=== PATIENT | female | born 1940 | race Caucasian/White ===

== ENCOUNTER 2017-07-19 05:13 | Inpatient (IN) | payer MEDICARE, OTHER ==
[2017-07-19] VITALS (11 sets, daily range): BP systolic 101–119; BP diastolic 59–73
[~2017-07-19] VITALS: Ht 160 cm; Wt 73.9 kg
[~2017-07-19 05:13] MED LIST: ADVIL200 MG ORAL; AMBIEN5 MG ORAL; CELEBREX200 MG ORAL; COLACE100 MG ORAL; FERROUS SULFAT325 M2 ORAL; LOVENOX10 MG SUBQ; MILK OF MA400 MG/51 ORAL; MIRALAX17 G2 ORAL; MULTIVITAMINS1 EAC2 ORAL; NORCO 5-325 TA1 EACH ORAL; NORCO1 E1 ORAL; OXYCODONE HCL10 MG ORAL; SIMVASTATIN40 MG ORAL; TOPROL XL25 MG ORAL; TYLENOL325 MG ORAL; TYLENOL650 MG/20. ORAL; Tylenol PM PO; VITAMIN B-12100 MCG ORAL; VITAMIN B125000 MCG PO; VITAMIN D1000 UNI1 ORAL; XANAX0.25 MG ORAL
[2017-07-19] MEDS ORDERED: ceFAZolin sod 1 GM in NS 55 ML IVP ONE (06:00)
[2017-07-19] MEDS ORDERED: celeBREX 200mg Cap **SURGERY PATIENTS ONLY PO ONE (06:00)
[2017-07-19] MEDS ORDERED: oxyCONTIN 20mg tab ORAL ONE (06:00)
[2017-07-19] MEDS ORDERED: celeBREX 200mg Cap **SURGERY PATIENTS ONLY ORAL ONE (06:20)
[2017-07-19] MEDS ORDERED: Bupivacaine 0.5% Inj 30 ml vial INJ ONE ×2 (06:27→06:29)
[2017-07-19] MEDS ORDERED: Ropivacaine 5mg/ml Vial 30ml INJ ONE (06:28)
[2017-07-19] MEDS ORDERED: cloNIDine 1000mcg/10ml inj ONE (06:28)
[2017-07-19] MEDS ORDERED: LR 1000ml 1,000 ML IVLG SCH (06:46)
[2017-07-19] MEDS ORDERED: Bacitracin 50000 Units Vial ONE (06:52)
[2017-07-19] MEDS ORDERED: NeoSporin Gu Irrig 1ml Amp IRRIG ONE (06:52)
--- NOTE | 2017-07-19 06:52 | Anethesia Preoperative Eval ---
Anesthesia Pre-op PMH/ROS General Date of Evaluation: Jul 19, 2017 Time of Evaluation: 06:54 Anesthesiologist: Raquel ASA Score: ASA 3 Mallampati Score Class I : Soft palate, uvula, fauces, pillars visible Class II: Soft palate, uvula, fauces visible Class III: Soft palate, base of uvula visible Class IV: Only hard plate visible Mallampati Classification: Class II Surgeon: Josh Diagnosis: R Knee Pain Surgical Procedure: R Knee Total Arthroplasty Anesthesia History: none Family History: no anesthesia problems Allergies: Coded Allergies: No Known Allergies (Unverified , 08/28/15) Medications: see eMAR Past Medical History Cardiovascular: Reports: other - HL Neurologic/Psychiatric: Reports: other - Seizures, Epilepsy HEENT: Reports: cataract (L), cataract (R) PSxH Narrative: Appendectomy, B Cat Ext IOL Anesthesia Pre-op Phys. Exam Physician Exam Last Vital Signs Date Time Temp Pulse Resp B/P (MAP) Pulse Ox O2 Delivery O2 Flow Rate FiO2 07/19/17 05:54 98.0 68 20 113/73 97 Room Air 98.0 Constitutional: NAD Neurologic: CN 2-12 intact Cardiovascular: RRR Respiratory: CTA Gastrointestinal: S/NT/ND Airway Exam Mallampati Score: Class II MO: limited ROM: limited Teeth: missing, intact Anesthesia Pre-op A/P Risk Assessment & Plan Assessment: ASA 3 Plan: GA, Spinal, R adductor Block, BIS Status Change Before Surgery: No Pre-Antibiotics Dru Grams Ancef IV Given Within 1 Hr of Incision: Yes Time Given: 07:21 Contreras García MD Jul 19, 2017 06:51
[2017-07-19] MEDS ORDERED: Labetalol 5mg/ml 20ml vial IV PRN (07:00)
[2017-07-19] MEDS ORDERED: DiphenhydrAMINE 50mg/ml Inj IVP PRN (07:00)
[2017-07-19] MEDS ORDERED: Midazolam 2mg/2ml Inj IVP PRN (07:00)
[2017-07-19] MEDS ORDERED: Ketorolac 30mg Inj IV PRN ×2 (07:00)
[2017-07-19] MEDS ORDERED: LORazepam Inj 2mg/ml 1ml IV PRN (07:00)
[2017-07-19] MEDS ORDERED: fentaNYL 100 mcg/2 mL IV PRN (07:00)
[2017-07-19] MEDS ORDERED: oxyCODONE HCL/Acetaminophen 5/325mg ORAL PRN (07:00)
[2017-07-19] MEDS ORDERED: Norco 5mg/325mg tab ORAL PRN (07:00)
[2017-07-19] MEDS ORDERED: Tranexamic Acid 1,000 MG in NS 55 ML IV ONE (07:00)
[2017-07-19] MEDS ORDERED: HYDROcodone/Acetamin 7.5/325 tab ORAL PRN ×2 (07:00→07:15)
[2017-07-19] MEDS ORDERED: Atropine Inj 1mg/10ml Syr IV PRN (07:00)
[2017-07-19] MEDS ORDERED: Hydromorphone 0.5mg/0.5ml inj IVP PRN (07:00)
--- NOTE | 2017-07-19 07:01 | Pre-Procedure Note/Attestation ---
Pre-Procedure Note/Attestation Complete Prior to Procedure Planned Procedure: right Procedure Narrative: rt tka Indications for Procedure Pre-Operative Diagnosis: rt knee arthritis Attestation I attest that I discussed the nature of the procedure; its benefits; risks and complications; and alternatives (and the risks and benefits of such alternatives ), prior to the procedure, with the patient (or the patient's legal desk representative). I attest that, if there was a reasonable possibility of needing a blood transfusion, the patient (or the patient's legal desk representative) was given the [facility] standardized written summary, pursuant to the [place] Blood Safety Act ([place] Health and Safety Code # 1645, as amended). I attest that I re-evaluated the patient just prior to the surgery and that there has been no change in the patient's H&P, except as documented below: NONE ADAM FITZPATRICK Jul 19, 2017 07:01
[2017-07-19] MEDS ORDERED: Milk of Magnesia 30ml Ud ORAL PRN (07:15)
[2017-07-19] MEDS ORDERED: HYDROmorphone 1mg/ml Carpuject SUBQ PRN (07:15)
--- NOTE | 2017-07-19 07:54 | Immediate Post-Op Evaluation ---
Immediate Post-Op Evalulation Immediate Post-Op Evalulation Procedure: R Kne Arthroplasty Date of Evaluation: Jul 19, 2017 Time of Evaluation: 09:55 IV Fluids: 1000 LR Blood Products: 0 Estimated Blood Loss: 25 Urinary Output: 250 Blood Pressure Systolic: 119 Blood Pressure Diastolic: 65 Pulse Rate: 98 Respiratory Rate: 16 O2 Sat by Pulse Oximetry: 99 Temperature (Fahrenheit): 97.6 Pain Score (1-10): 0 Nausea: No Vomiting: No Complications 0 Patient Status: awake, reacts, patent, none Hydration Status: adequate Dru Grams Ancef IV Given Within 1 Hr of Incision: Yes Time Given: 07:21 Contreras García MD Jul 19, 2017 07:54
[2017-07-19] MEDS ORDERED: Sterile Water For Irrig 2000ml IRRIG ONE (09:00)
[2017-07-19] MEDS ORDERED: Dexamethasone 4mg/ml vial ONE (09:00)
[2017-07-19] MEDS ORDERED: Propofol 200mg/20ml IV ONE (09:00)
[2017-07-19] MEDS ORDERED: Lidocaine 1% MPF 10mg/ml 5ml ONE (09:00)
[2017-07-19] MEDS ORDERED: Alfentanil 2ml Inj ONE (09:00)
[2017-07-19] MEDS ORDERED: Midazolam 2mg/2ml Inj ONE (09:00)
[2017-07-19] MEDS ORDERED: LR 1000ml ONE (09:00)
[2017-07-19] MEDS ORDERED: NS Irrig 1000ml ONE (09:00)
--- NOTE | 2017-07-19 09:38 | Brief Operative Note ---
Immediate Post Operative Note Operative Note Chief Complaint: rt knee pain Pre-op Diagnosis: rt knee arthritis Procedure: rt tka Post-op Diagnosis: same as pre-op Findings: consistent w/pre-op dx studies Surgeon: md brittaney [employer] Specialist: basilio lopez Anesthesiologist: md tracy Anesthesia: general, regional Specimen: yes Complications: none Condition: stable Fluids: ns Estimated Blood Loss: minimal Drains: none Implant(s) used?: Yes - MARSHAL Eilzabeth Jul 19, 2017 09:37
--- NOTE | 2017-07-19 12:32 | Diagnostic Imaging Report ---
Indications: Postoperative, status post total knee arthroplasty Technique: Two views of the right knee Comparison: None Findings: Two postoperative views of the knee demonstrate total knee arthroplasty, good anatomic alignment of the prosthesis. . There is postsurgical soft tissue air. Impression: Postoperative right knee, no unusual features.
[2017-07-19 14:06] LABS: HEMOGLOBIN 13.9 G/DL (12.0-16.0); MEAN CORPUSCULAR VOLUME 89 FL (80-99); PLATELET COUNT 242 K/UL (150-450); RED CELL DISTRIBUTION WIDTH 11.4 % (11.6-14.8)
[2017-07-19] MEDS: D5 1/2NS w/KCl 20mEq 1,000 ML IV SCH (15:58)
[2017-07-19] MEDS: ceFAZolin sod 1 GM in D5W 55 ML IV SCH ×2 (15:58→23:38)
[2017-07-19] MEDS: Docusate 100mg cap ORAL SCH ×2 (15:58→18:04)
--- NOTE | 2017-07-19 16:45 | Operative Note - Dictated ---
DATE OF OPERATION: 07/19/2017 PREOPERATIVE DIAGNOSIS: Right knee end-stage arthritis. POSTOPERATIVE DIAGNOSIS: Right knee end-stage arthritis. PROCEDURE: Right total knee arthroplasty using Samantha Persona system, size 5 femur, size E tibia, size 35 mm all-poly patella and a 10 mm thick ultra cross-linked poly. SURGEON: Baudilio Moreno M.D. OUTSIDE UPHOLSTERER: Jillian Lima PA-C. ANESTHESIOLOGIST: Contreras García M.D. ANESTHESIA: Spinal anesthesia with adductor block for postoperative pain management. ESTIMATED BLOOD LOSS: Less than 100 mL. TOURNIQUET TIME: 75 minutes. COMPLICATIONS: None. BRIEF HISTORY: The patient is a pleasant 77-year-old female, who has had ongoing right knee arthritis. She also had left knee arthritis, underwent left total knee arthroplasty. She did very well with that. After full discussion of risks and benefits of surgery and complications associated with surgery including infection, bleeding, neurovascular complication, possibility of infection requiring resection arthroplasty, possibility of continued pain, loss of motion, decreased strength, inability to walk well, and continued pain despite surgery, she opted for surgical treatment as described above. OPERATIVE PROCEDURE: The patient was brought to the operating table and was placed supine. All pressure points were well padded. Spinal anesthesia was induced and adductor block was performed. The right knee was prepped and draped in usual sterile fashion and was exsanguinated. The tourniquet was inflated to 275 mmHg. A standard anterior approach to the knee was undertaken. Medial parapatellar arthrotomy was performed. The patella was everted. The medial and lateral meniscus were removed. ACLs and PCLs were released. Intramedullary access into the femur was obtained and intramedullary guide was placed. An optional extra 2 mm distal femoral cut was performed to allow for the 5-degree extension deficit. Once this was performed, sizing of the femur was performed and this appeared to be size 5 femur. The distal femoral cut was performed with 5 degrees of valgus, and the cutting blocks for anterior and posterior cuts were placed in about 3 degrees of external rotation and size 5 block was applied and anterior, posterior, and chamfer cuts were performed without any complication. At this point, the femoral trial was applied and there was excellent fit. This was slightly lateralized and peg holes were drilled. At this point, care was given to tibia. The posterior, medial, and lateral retractors were placed in. The anterior tibial crest was marked and anatomical axis was recreated with the extramedullary guide. The slope was recreated, 4 mm was taken off the most involved side, which was the medial side. At this point, a standard cut was performed. There was excellent cut. Flexion and extension gap was checked and appeared to be perfect. At this point, the sizing of the tibia was performed and size E appeared to be the right size. At this point, the tibia was placed in the slight external rotation and the tibia was punched in without any complication. Care was given to the patella. The patella was measured. Osteophytes were removed. The thickness of the patella was 24 mm. A standard patellar cut was performed and 14 mm of patella was remaining. At this point, sizing was performed and 35 mm patella appeared to be the right size. The peg holes were drilled. At this point, all trial components were applied and the knee was reduced and a 10 mm poly trial was applied. The knee was placed through range of motion with full extension, full flexion, and excellent stability at zero, 30 degrees, 45 degrees, and 90 degrees of flexion. The patellar tracking was excellent. At this point, all trial components were removed. Knee was thoroughly irrigated using copious amount of fluid. A bone block was placed into the femoral canal access hole. At this point, cement was mixed and the femoral component, tibial component, and patella components were all cemented without any complications. All excess cement was removed. The knee was then thoroughly irrigated after the cement was hardened and trialing was performed and size 10 mm appeared to be perfect with good range of motion and from 0 to 120 degrees and excellent stability as described previously. At this point, the knee was again thoroughly irrigated and an actual 10 mm poly was locked in without any complication. The locking mechanism was checked and rechecked, appeared to be perfectly locked. Range of motion and stability were rechecked for the last time, appeared to be perfect as described previously. The wounds were thoroughly irrigated one more time with all the components in. The tourniquet was deflated, and there was minimal bleeding. At this point, the extensor mechanism was closed using #1 Vicryl suture. Subcutaneous tissue was closed using 2-0 Vicryl suture. Skin was closed using 3-0 Monocryl suture. Dermabond was applied and sterile dressing was applied. The patient was taken to the recovery room in stable condition. All lap counts and instrument counts were correct. Baudilio Moreno M.D. DR: KETAN JOB#: [id number] CC:
--- NOTE | 2017-07-19 20:02 | History & Physical ---
History and Physical History & Physicial .HISTORY AND PHYSICAL THIS IS A 77 YEAR OLD FEMLAE WIHT HISTORY O A KNEE AND HYPERLIPDIMIOA S/P TOTAL KNE ARTHROPLASTY LASTY EAR HAD ARTHROPLASTY NO CHES TPAIN NO SOB POST OP FREDERICK DUVALL DENIES ANY PALPITAION VITALS ARE STABLE HCT IS 13.9 PLATELET 242 WELL DEVELOPED WELL NOURISHED NO JVD CTA SOFT S1,S2,RRR SOFT IMPRESSION: S/P TOTAL KNEE ARTHROPLASTY MINIMLA BLOOD LOSS HYPERLIPIDMIA RESUME SIMVASTTTIN PT OT CPM DVT PROPHYALXIS PAINCONTROL FREDERICK Guthrie RATHER WELL. LAURENT LYNCH Jul 19, 2017 20:02
[2017-07-19] MEDS: Norco 5mg/325mg tab ORAL PRN (21:02)
[2017-07-19] MEDS: Atorvastatin 20mg tab ORAL SCH (21:14)
[2017-07-19] MEDS: Enoxaparin 30mg Inj SUBQ SCH (21:15)
[2017-07-20] VITALS: BP 105/58
[2017-07-20] MEDS: D5 1/2NS w/KCl 20mEq 1,000 ML IV SCH ×2 (02:28→15:53)
[2017-07-20] MEDS: Norco 5mg/325mg tab ORAL PRN ×4 (02:33→18:07)
[2017-07-20 04:43] VITALS: BP 111/58
[2017-07-20 07:37] LABS: BASOPHILS % (AUTO) 0.3 % (0.0-2.0); EOSINOPHILS % (AUTO) 0.1 % (0.0-3.0); HEMATOCRIT 36.6 % (37.0-47.0); HEMOGLOBIN 12.7 G/DL (12.0-16.0); LYMPHOCYTES % (AUTO) 11.4 % (20.0-45.0); MEAN CORPUSCULAR VOLUME 90 FL (80-99); MONOCYTES % (AUTO) 10.4 % (1.0-10.0); NEUTROPHILS % (AUTO) 77.9 % (45.0-75.0); PLATELET COUNT 217 K/UL (150-450); RED BLOOD COUNT 4.08 M/UL (4.20-5.40); WHITE BLOOD COUNT 14.2 K/UL (4.8-10.8)
[2017-07-20 08:08] VITALS: BP 117/56
--- NOTE | 2017-07-20 08:13 | Orthopedic Progress Note ---
Orthopedic - Progress Note Subjective Symptoms: improved Objective Vital Signs Laboratory Tests Test 07/19/17 13:40 07/20/17 06:35 White Blood Count 14.0 K/UL (4.8-10.8) H 14.2 K/UL (4.8-10.8) H Red Blood Count 4.60 M/UL (4.20-5.40) 4.08 M/UL (4.20-5.40) L Hemoglobin 13.9 G/DL (12.0-16.0) 12.7 G/DL (12.0-16.0) Hematocrit 41.0 % (37.0-47.0) 36.6 % (37.0-47.0) L Mean Corpuscular Volume 89 FL (80-99) 90 FL (80-99) Mean Corpuscular Hemoglobin 30.2 PG (27.0-31.0) 31.1 PG (27.0-31.0) H Mean Corpuscular Hemoglobin Concent 33.9 G/DL (32.0-36.0) 34.7 G/DL (32.0-36.0) Red Cell Distribution Width 11.4 % (11.6-14.8) L 12.0 % (11.6-14.8) Platelet Count 242 K/UL (150-450) 217 K/UL (150-450) Mean Platelet Volume 5.5 FL (6.5-10.1) L 6.4 FL (6.5-10.1) L Neutrophils (%) (Auto) % (45.0-75.0) 77.9 % (45.0-75.0) H Lymphocytes (%) (Auto) % (20.0-45.0) 11.4 % (20.0-45.0) L Monocytes (%) (Auto) % (1.0-10.0) 10.4 % (1.0-10.0) H Eosinophils (%) (Auto) % (0.0-3.0) 0.1 % (0.0-3.0) Basophils (%) (Auto) % (0.0-2.0) 0.3 % (0.0-2.0) Differential Total Cells Counted 100 Neutrophils % (Manual) 93 % (45-75) H Lymphocytes % (Manual) 3 % (20-45) L Monocytes % (Manual) 4 % (1-10) Eosinophils % (Manual) 0 % (0-3) Basophils % (Manual) 0 % (0-2) Band Neutrophils 0 % (0-8) Platelet Estimate Adequate Platelet Morphology Normal Red Blood Cell Morphology Normal Last 24 Hour Vital Signs Date Time Temp Pulse Resp B/P (MAP) Pulse Ox O2 Delivery O2 Flow Rate FiO2 07/20/17 08:08 97.9 75 20 117/56 97 Room Air 97.9 07/20/17 04:43 97.5 72 18 111/58 95 Room Air 97.5 07/20/17 00:00 98.4 100 19 105/58 98 Room Air 98.4 07/19/17 20:00 97.6 76 18 107/63 98 Room Air 97.6 07/19/17 15:45 97.5 76 20 109/61 98 97.5 07/19/17 12:23 97.7 75 20 108/60 98 97.7 07/19/17 11:00 97.8 93 16 104/59 99 Nasal Cannula 2.0 97.8 07/19/17 10:45 91 15 101/62 96 Nasal Cannula 2.0 07/19/17 10:30 88 18 107/63 98 Nasal Cannula 2.0 07/19/17 10:15 89 15 103/67 100 Simple Mask 07/19/17 10:00 91 16 110/64 100 Simple Mask 07/19/17 09:55 92 14 112/61 100 Simple Mask 07/19/17 09:44 97.6 98 17 119/65 99 Simple Mask 97.6 07/19/17 09:44 207.7 98 16 99 I&O Intake and Output 07/19/17 07/20/17 19:00 07:00 Intake Total 400 ml 1425 ml Output Total 200 ml 1100 ml Balance 200 ml 325 ml Intake Oral 0 ml 600 ml IV Total 400 ml 825 ml Output Urine Total 200 ml 1100 ml Wound: clean, dry, intact Drains: none Neuro Status: normal Vascular Status: normal Additional Comments Xray excellent Assessment Post-op Diagnosis POD 1 Procedure Performed rt tka Plan Plan: PT, discharge plan - SNF on Tuesday MARSHAL NEWMAN Jul 20, 2017 08:13
--- NOTE | 2017-07-20 08:23 | 48 Hour Post Anesthesia Eval ---
Post Anesthesia Evaluation Procedure: R Kne Arthroplasty Date of Evaluation: Jul 20, 2017 Time of Evaluation: 06:40 Blood Pressure Systolic: 111 0: 58 Pulse Rate: 72 Respiratory Rate: 18 Temperature (Fahrenheit): 97.5 O2 Sat by Pulse Oximetry: 95 Airway: patent Nausea: No Vomiting: No Pain Intensity: 0 Hydration Status: adequate Cardiopulmonary Status: at baseline Mental Status/LOC: patient returned to baseline Post-Anesthesia Complications: 0 Follow-up care needed: N/A - further care as per primary team WINSTON CARREON M.D. Jul 20, 2017 08:23
[2017-07-20] MEDS: celeBREX 200mg Cap **SURGERY PATIENTS ONLY ORAL SCH (08:39)
[2017-07-20] MEDS: Docusate 100mg cap ORAL SCH ×3 (08:39→18:00)
[2017-07-20] MEDS: Enoxaparin 30mg Inj SUBQ SCH ×2 (08:41→20:08)
[2017-07-20 12:00] VITALS: BP 106/62
--- NOTE | 2017-07-20 19:35 | General Progress Note ---
Assessment/Plan Status Narrative s/p tkr periopertive blood loss increase pain plan oxycontin 10 bid norco prn adn willfollow monitor cbc dc to [facility] Subjective Date patient seen: Jul 20, 2017 Time patient seen: 19:33 Constitutional: Reports: no symptoms HEENT: Reports: no symptoms Allergies: Coded Allergies: No Known Allergies (Unverified , 08/28/15) Subjective has a lot o fpain \no fevver no chills Objective Last 24 Hour Vital Signs Date Time Temp Pulse Resp B/P (MAP) Pulse Ox O2 Delivery O2 Flow Rate FiO2 07/20/17 18:07 98.2 07/20/17 12:00 98.2 99 20 106/62 98 Room Air 98.2 07/20/17 08:23 207.5 72 18 95 07/20/17 08:08 97.9 75 20 117/56 97 Room Air 97.9 07/20/17 04:43 97.5 72 18 111/58 95 Room Air 97.5 07/20/17 00:00 98.4 100 19 105/58 98 Room Air 98.4 07/19/17 20:00 97.6 76 18 107/63 98 Room Air 97.6 Intake and Output 07/19/17 07/20/17 19:00 07:00 Intake Total 400 ml 1425 ml Output Total 200 ml 1100 ml Balance 200 ml 325 ml Intake Oral 0 ml 600 ml IV Total 400 ml 825 ml Output Urine Total 200 ml 1100 ml Laboratory Tests 07/20/17 06:35: White Blood Count 14.2H, Red Blood Count 4.08L, Hemoglobin 12.7, Hematocrit 36.6L, Mean Corpuscular Volume 90, Mean Corpuscular Hemoglobin 31.1H, Mean Corpuscular Hemoglobin Concent 34.7, Red Cell Distribution Width 12.0, Platelet Count 217, Mean Platelet Volume 6.4L, Neutrophils (%) (Auto) 77.9H, Lymphocytes (%) (Auto) 11.4L, Monocytes (%) (Auto) 10.4H, Eosinophils (%) (Auto) 0.1, Basophils (%) (Auto) 0.3 Height (Feet): 5 Height (Inches): 3.00 Weight (Pounds): 163 General Appearance: WD/WN Neck: non-tender, supple Cardiovascular: normal peripheral pulses, normal rate, regular rhythm, no JVD Respiratory/Chest: lungs clear Abdomen: soft LAURENT LYNCH Jul 20, 2017 19:34
[2017-07-20] MEDS: Atorvastatin 20mg tab ORAL SCH (20:05)
[2017-07-20] MEDS: oxyCONTIN 10mg tab ORAL SCH (20:06)
[2017-07-20 20:53] VITALS: BP 155/77
[2017-07-21 00:01] VITALS: BP 133/90
[2017-07-21 04:00] VITALS: BP 136/78
[2017-07-21] MEDS: D5 1/2NS w/KCl 20mEq 1,000 ML IV SCH (05:54)
[2017-07-21] MEDS: Norco 5mg/325mg tab ORAL PRN ×3 (05:55→18:22)
[2017-07-21 07:27] LABS: BASOPHILS % (AUTO) 0.6 % (0.0-2.0); EOSINOPHILS % (AUTO) 2.1 % (0.0-3.0); HEMATOCRIT 42.1 % (37.0-47.0); HEMOGLOBIN 14.2 G/DL (12.0-16.0); LYMPHOCYTES % (AUTO) 21.6 % (20.0-45.0); MEAN CORPUSCULAR VOLUME 90 FL (80-99); MONOCYTES % (AUTO) 8.5 % (1.0-10.0); NEUTROPHILS % (AUTO) 67.3 % (45.0-75.0); PLATELET COUNT 276 K/UL (150-450); RED BLOOD COUNT 4.66 M/UL (4.20-5.40); WHITE BLOOD COUNT 12.6 K/UL (4.8-10.8)
[2017-07-21 08:00] VITALS: BP 136/88
[2017-07-21] MEDS: celeBREX 200mg Cap **SURGERY PATIENTS ONLY ORAL SCH (08:43)
[2017-07-21] MEDS: Docusate 100mg cap ORAL SCH ×3 (08:43→18:17)
[2017-07-21] MEDS: oxyCONTIN 10mg tab ORAL SCH ×2 (08:44→21:31)
[2017-07-21] MEDS: Enoxaparin 30mg Inj SUBQ SCH ×2 (08:53→21:33)
--- NOTE | 2017-07-21 08:54 | Orthopedic Progress Note ---
Orthopedic - Progress Note Subjective Symptoms: c/o post-op knee pain Objective Vital Signs Last 24 Hour Vital Signs Date Time Temp Pulse Resp B/P (MAP) Pulse Ox O2 Delivery O2 Flow Rate FiO2 07/21/17 08:00 97.6 110 19 136/88 94 97.6 07/21/17 04:00 97.9 120 19 136/78 96 97.9 07/21/17 00:01 97.4 82 17 133/90 97 97.4 07/20/17 20:53 97.6 71 18 155/77 96 97.6 07/20/17 18:07 98.2 07/20/17 12:00 98.2 99 20 106/62 98 Room Air 98.2 I&O Intake and Output 07/20/17 07/21/17 19:00 07:00 Intake Total 600 ml 630 ml Balance 600 ml 630 ml Intake Oral 480 ml IV Total 600 ml 150 ml # Voids 6 Wound: clean, dry, intact Drains: none Neuro Status: normal Vascular Status: normal Assessment Post-op Diagnosis s/p right total knee arthroplasty pod 2 Plan Plan: PT, pain management, discharge plan Additional Comments Discharge to rehab today or tomorrow. ADAM FITZPATRICK Jul 21, 2017 08:54
--- NOTE | 2017-07-21 10:37 | General Progress Note ---
Assessment/Plan Status Narrative S/P TKR Assessment/Plan pain meds PT DVT prophylaxis DC to rehab Subjective Allergies: Coded Allergies: No Known Allergies (Unverified , 08/28/15) Subjective pain is better Objective Last 24 Hour Vital Signs Date Time Temp Pulse Resp B/P (MAP) Pulse Ox O2 Delivery O2 Flow Rate FiO2 07/21/17 08:00 97.6 110 19 136/88 94 97.6 07/21/17 04:00 97.9 120 19 136/78 96 97.9 07/21/17 00:01 97.4 82 17 133/90 97 97.4 07/20/17 20:53 97.6 71 18 155/77 96 97.6 07/20/17 18:07 98.2 07/20/17 12:00 98.2 99 20 106/62 98 Room Air 98.2 Intake and Output 07/20/17 07/21/17 19:00 07:00 Intake Total 600 ml 630 ml Balance 600 ml 630 ml Intake Oral 480 ml IV Total 600 ml 150 ml # Voids 6 Laboratory Tests 07/21/17 06:55: White Blood Count 12.6H, Red Blood Count 4.66, Hemoglobin 14.2, Hematocrit 42.1 , Mean Corpuscular Volume 90, Mean Corpuscular Hemoglobin 30.5, Mean Corpuscular Hemoglobin Concent 33.8, Red Cell Distribution Width 12.0, Platelet Count 276, Mean Platelet Volume 6.1L, Neutrophils (%) (Auto) 67.3, Lymphocytes ( %) (Auto) 21.6, Monocytes (%) (Auto) 8.5, Eosinophils (%) (Auto) 2.1, Basophils (%) (Auto) 0.6 Height (Feet): 5 Height (Inches): 3.00 Weight (Pounds): 163 Cardiovascular: normal rate Respiratory/Chest: lungs clear Edema: no edema noted DARIUS Andres Jul 21, 2017 10:37
[2017-07-21 12:00] VITALS: BP 114/70
[2017-07-21 20:00] VITALS: BP 127/73
[2017-07-21] MEDS: Atorvastatin 20mg tab ORAL SCH (21:31)
[2017-07-22] VITALS: BP 111/71
[2017-07-22 04:00] VITALS: BP 137/79
[2017-07-22 07:36] LABS: BASOPHILS % (AUTO) 0.7 % (0.0-2.0); EOSINOPHILS % (AUTO) 3.3 % (0.0-3.0); HEMATOCRIT 36.6 % (37.0-47.0); HEMOGLOBIN 12.4 G/DL (12.0-16.0); LYMPHOCYTES % (AUTO) 28.1 % (20.0-45.0); MEAN CORPUSCULAR VOLUME 90 FL (80-99); MONOCYTES % (AUTO) 7.9 % (1.0-10.0); PLATELET COUNT 213 K/UL (150-450); RED BLOOD COUNT 4.07 M/UL (4.20-5.40); RED CELL DISTRIBUTION WIDTH 11.9 % (11.6-14.8); WHITE BLOOD COUNT 7.4 K/UL (4.8-10.8)
[2017-07-22 07:56] LABS: ANION GAP 4 mmol/L (5-15); BLOOD UREA NITROGEN 11 mg/dL (7-18); CALCIUM 8.3 MG/DL (8.5-10.1); CARBON DIOXIDE 32 MMOL/L (21-32); CHLORIDE 102 MMOL/L (98-107); CREATININE 0.7 MG/DL (0.55-1.30); POTASSIUM 4.2 MMOL/L (3.5-5.1); SODIUM 137 MMOL/L (136-145)
[2017-07-22 08:00] VITALS: BP 131/72
--- NOTE | 2017-07-22 08:01 | Orthopedic Progress Note ---
Orthopedic - Progress Note Subjective Symptoms: improved Objective Vital Signs Last 24 Hour Vital Signs Date Time Temp Pulse Resp B/P (MAP) Pulse Ox O2 Delivery O2 Flow Rate FiO2 07/22/17 04:00 98.1 82 20 137/79 97 98.1 07/22/17 00:00 97.3 105 19 111/71 96 97.3 07/21/17 22:30 97.9 07/21/17 20:00 97.9 106 20 127/73 98 97.9 07/21/17 12:00 97.2 85 19 114/70 98 97.2 I&O Intake and Output 07/21/17 07/22/17 19:00 07:00 Intake Total 1640 ml 580 ml Balance 1640 ml 580 ml Intake Oral 1040 ml 580 ml IV Total 600 ml # Voids 6 4 Wound: clean, dry, intact Drains: none Neuro Status: normal Vascular Status: normal Assessment Post-op Diagnosis POD 3 Procedure Performed rt tka Plan Plan: discharge plan - d/c today to SNF. f/u as outpt in 2 weeks MARSHAL NEWMAN Jul 22, 2017 08:01
--- NOTE | 2017-07-22 08:03 | Discharge Summary ---
MARSHAL NEWMAN 07/22/17 0803: Discharge Summary Hospital Course Date of Admission Jul 19, 2017 at 05:13 Date of Discharge 07/22/17 Admitting Diagnosis Rt knee arthritis HPI Cory Bright is a 77 year old female who was admitted on Jul 19, 2017 at 05: 13 for Primary Osteoarthritis Procedures Rt TKA Hospital Course benign Discharge Discharge Disposition Patient was discharged to SNF. outpt f/u in 2 weeks Ilana Fuentes NP ([facility]) 07/25/17 1053: Discharge Summary Hospital Course Hospital Course DISCHARGE DIAGNOSIS Right knee end-stage osteoarthritis. s/p Right total knee arthroplasty Discharge Instructions Discharge Instructions Special Instructions I have been assigned to complete a D/C Summary on this account. I was not involved in the patient management MARSHAL NEWMAN Jul 22, 2017 08:03 Ilana Fuentes NP ([facility]) Jul 25, 2017 10:53
[2017-07-22] MEDS: celeBREX 200mg Cap **SURGERY PATIENTS ONLY ORAL SCH (10:37)
[2017-07-22] MEDS: Docusate 100mg cap ORAL SCH ×2 (10:38→13:31)
[2017-07-22] MEDS: oxyCONTIN 10mg tab ORAL SCH (10:38)
[2017-07-22] MEDS: Enoxaparin 30mg Inj SUBQ SCH (10:39)
[2017-07-22 12:00] VITALS: BP 137/74
--- NOTE | 2017-07-22 12:45 | General Progress Note ---
Assessment/Plan Assessment/Plan pain meds PT DVT prophylaxis DC to rehab today Subjective Allergies: Coded Allergies: No Known Allergies (Unverified , 08/28/15) Subjective In NAD Objective Last 24 Hour Vital Signs Date Time Temp Pulse Resp B/P (MAP) Pulse Ox O2 Delivery O2 Flow Rate FiO2 07/22/17 10:38 98.1 07/22/17 04:00 98.1 82 20 137/79 97 98.1 07/22/17 00:00 97.3 105 19 111/71 96 97.3 07/21/17 22:30 97.9 07/21/17 20:00 97.9 106 20 127/73 98 97.9 Intake and Output 07/21/17 07/22/17 19:00 07:00 Intake Total 1640 ml 580 ml Balance 1640 ml 580 ml Intake Oral 1040 ml 580 ml IV Total 600 ml # Voids 6 4 Laboratory Tests 07/22/17 06:00: White Blood Count 7.4, Red Blood Count 4.07L, Hemoglobin 12.4, Hematocrit 36.6L , Mean Corpuscular Volume 90, Mean Corpuscular Hemoglobin 30.3, Mean Corpuscular Hemoglobin Concent 33.8, Red Cell Distribution Width 11.9, Platelet Count 213, Mean Platelet Volume 6.4L, Neutrophils (%) (Auto) 60.0, Lymphocytes ( %) (Auto) 28.1, Monocytes (%) (Auto) 7.9, Eosinophils (%) (Auto) 3.3H, Basophils (%) (Auto) 0.7, Sodium Level 137, Potassium Level 4.2, Chloride Level 102, Carbon Dioxide Level 32, Anion Gap 4L, Blood Urea Nitrogen 11, Creatinine 0.7, Estimat Glomerular Filtration Rate , Glucose Level 106, Calcium Level 8.3L Height (Feet): 5 Height (Inches): 3.00 Weight (Pounds): 163 Cardiovascular: normal rate Respiratory/Chest: lungs clear Edema: no edema noted DARIUS Andres Jul 22, 2017 12:45
== END 2017-07-22 14:34 | DRG 470 ==
LOC: SDSOVERFLO 05:13 → 3E 11:56
PROC: 0SRC0J9 Replacement of Right Knee Joint with Synthetic Substitute, Cemented, Open Approach (ICD-10-PCS; principal; 2017-07-19 07:00)
DX: M17.11 Unilateral primary osteoarthritis, right knee (principal); E78.5 Hyperlipidemia, unspecified; M25.761 Osteophyte, right knee
CPT/HCPCS: 36415; 80048; 85007; 85025; 86850; 86900; 86901; 86920; 87081; 94003; 94150; J2250; J2405; J3490